=== PATIENT | male | born 1985 | race Caucasian/White ===

== ENCOUNTER 2020-02-11 20:40 | Emergency (ER) | payer OTHER ==
[~2020-02-11] VITALS: Ht 190.5 cm; Wt 89.8 kg
[2020-02-11] MEDS ORDERED: DEPAKOTE 250MG250 M1 PO (20:49)
[2020-02-11] MEDS ORDERED: TEGRETOL200 MG PO (20:49)
[2020-02-11] MEDS ORDERED: NORCO 5-325 TA1 EAC1 PO (21:48)
[2020-02-11 21:55] VITALS: BP 141/70
== END 2020-02-11 21:56 | disposition home or self-care (01) ==
LOC: M.ERS 20:40
DX: S20.211A Contusion of right front wall of thorax, initial encounter (principal); Z88.6 Allergy status to analgesic agent; W17.89XA Other fall from one level to another, initial encounter; Y93.44 Activity, trampolining; Y92.89 Other specified places as the place of occurrence of the external cause; Y99.8 Other external cause status